=== PATIENT | male | born 1965 | race Caucasian/White ===

== ENCOUNTER 2017-06-18 18:51 | Emergency (ER) | payer BC ==
[2017-06-18 19:06] VITALS: BP 117/79
--- NOTE | 2017-06-18 19:28 | EDM.PDOC ---
ED HPI GENERAL MEDICAL PROBLEM - General Chief Complaint: Lower Extremity Injury/Pain Stated Complaint: HURT LEFT KNEE Time Seen by Provider: 06/18/17 19:15 Source of Information: Reports: Patient History Limitations: Reports: No Limitations - History of Present Illness INITIAL COMMENTS - FREE TEXT/NARRATIVE: 51-year-old male was playing football when he landed and felt his knee temporarily "go out of place". When he got up it felt like it popped back into place but now when he bears weight he feels and instability and pain laterally. He is able to bear some weight, but he has no effusion or deformity. He just wants it checked. Onset: Sudden Duration: Hour(s): (within the last hour) Location: Reports: Lower Extremity, Left Worsens with: Reports: Other (Weightbearing) Associated Symptoms: Reports: No Other Symptoms left knee Pain Score (Numeric/FACES): 5 - Related Data Allergies Allergy/AdvReac Type Severity Reaction Status Date / Time No Known Allergies Allergy Verified 12/18/15 07:38 Home Meds: Home Meds Primidone 1 tab PO BEDTIME 06/18/17 [History] Past Medical History HEENT History: Reports: Impaired Vision Neurological History: Reports: Other (See Below) Other Neuro History: essential tremor - Infectious Disease History Infectious Disease History: Reports: Chicken Pox - Past Surgical History HEENT Surgical History: Reports: None Social & Family History - Tobacco Use Smoking Status *Q: Never Smoker Second Hand Smoke Exposure: No - Caffeine Use Caffeine Use: Reports: Coffee - Alcohol Use Days Per Week of Alcohol Use: 0 - Recreational Drug Use Recreational Drug Use: No Review of Systems - Review of Systems Review Of Systems: See Below Respiratory: Reports: No Symptoms Cardiovascular: Reports: No Symptoms GI/Abdominal: Reports: No Symptoms Skin: Reports: No Symptoms. Denies: Bruising, Erythema Psychiatric: Reports: No Symptoms ED EXAM, GENERAL - Physical Exam Exam: See Below Exam Limited By: No Limitations General Appearance: Alert, No Apparent Distress Respiratory/Chest: No Respiratory Distress Extremities: Other (Exam is otherwise limited to the knees. They are symmetric in gross appearance. He has no significant palpation tenderness surrounding the injured knee, no medial or lateral ligament laxity. Patella is tracking properly.) Course - Vital Signs Last Recorded V/S: Last Vital Signs Temp 95.6 F 06/18/17 19:14 Pulse 91 06/18/17 19:14 Resp 16 06/18/17 19:14 BP 117/79 06/18/17 19:14 Pulse Ox 97 06/18/17 19:14 - Re-Assessments/Exams Free Text/Narrative Re-Assessment/Exam: 06/18/17 19:26 Discussed an x-ray but this is likely soft tissue injury and the patient declined an x-ray unless it was likely to be abnormal or informative. A four- inch Ortiz wrap was applied to the knee, he has crutches at home and he is going to buy a neoprene sleeve with patella stability. If he doesn't improve satisfactorily over the next several days he will recheck with orthopedics. Departure - Departure Time of Disposition: 19:42 Disposition: Home, Self-Care 01 Condition: Good Clinical Impression: Sprain of left knee Qualifiers: Encounter type: initial encounter Involved ligament of knee: unspecified ligament Qualified Code(s): S83.92XA - Sprain of unspecified site of left knee, initial encounter - Discharge Information Instructions: Knee Sprain, Adult, [id number] Referrals: PCP,None [Primary Care Provider] - Forms: ED Department Discharge Care Plan Goals: Wrap knee or use neoprene sleeve for support and increase activity as tolerated. Consider using crutches for the next several days until improved. Recheck in 4-6 days if not improving satisfactorily, or return anytime sooner if worsening or concerns.
== END 2017-06-18 19:42 | disposition home or self-care (01) ==
LOC: JP.ED 18:51
DX: S83.92XA Sprain of unspecified site of left knee, initial encounter (principal); X50.9XXA Other and unspecified overexertion or strenuous movements or postures, initial encounter; Y93.61 Activity, american tackle football
CPT/HCPCS: 99283

== ENCOUNTER 2024-03-13 02:09 | Emergency (ER) | payer BC ==
[2024-03-13 02:25] VITALS: BP 124/90; PULSE 74
[2024-03-13 02:52] LABS: BASOPHILS ABSOLUTE AUTO 0.05 K/uL (0.00-0.10); BASOPHILS PERCENT AUTO 0.4 % (0.1-1.3); EOSINOPHILS ABSOLUTE AUTO 0.11 K/uL (0.00-0.40); EOSINOPHILS PERCENT AUTO 0.9 % (0.0-5.4); HEMATOCRIT 43.9 % (38.4-49.7); IMMATURE GRAN ABSOLUTE AUTO 0.04 K/uL (0.00-0.23); IMMATURE GRAN PERCENT AUTO 0.3 % (0.0-0.7); LYMPHOCYTES ABSOLUTE AUTO 2.41 K/uL (0.8-3.3); LYMPHOCYTES PERCENT AUTO 19.6 % (11.4-47.7); MEAN CORPUSCULAR HEMOGLOBIN 30.1 pg (31.6-35.5); MEAN CORPUSCULAR HGB CONC 34.2 g/dL (31.6-35.5); MEAN CORPUSCULAR VOLUME 88.2 fL (81.4-99.0); MONOCYTES ABSOLUTE AUTO 1.19 K/uL (0.20-0.90); MONOCYTES PERCENT AUTO 9.7 % (3.3-12.6); NEUTROPHILS ABSOLUTE AUTO 8.47 K/uL (1.0-7.6); NEUTROPHILS PERCENT AUTO 69.1 % (40.0-78.1); PLATELET COUNT,PLT 271 K/uL (130-375); RED BLOOD CELL COUNT 4.98 M/uL (4.14-5.76); WHITE BLOOD CELL COUNT,WBC 12.3 K/uL (3.2-11.0)
[2024-03-13 03:10] LABS: A/G RATIO 1.1 (1.2-2.2); ALANINE AMINOTRANSFERASE,ALT 20 U/L (12-78); ALBUMIN 3.8 g/dL (3.4-5.0); ALKALINE PHOSPHATASE 80 U/L (46-116); ANION GAP 9.6 mmol/L (5.0-14.0); ASPARTATE AMNIOTRANSFERASE,AST 16 U/L (15-37); BILIRUBIN TOTAL 0.5 mg/dL (0.2-1.0); BLOOD UREA NITROGEN,BUN 19 mg/dL (7-18); CALCIUM 8.6 mg/dL (8.5-10.1); CARBON DIOXIDE,CO2 27 mmol/L (21-32); CHLORIDE,CL 104 mmol/L (100-108); CREATININE 1.3 mg/dL (0.8-1.3); EST CRCL DRUG DOSING (CG) 63.95 mL/min; ESTIMATED GFR 64 mL/min (>60); GLUCOSE RANDOM 110 mg/dL (74-106); PROTEIN TOTAL,TP 7.2 g/dL (6.4-8.2); SODIUM,NA 141 mmol/L (140-148)
[2024-03-13 03:11] LABS: TROPONIN I HIGH SENSITIVITY < 4.0 pg/mL (<=60.3)
== END 2024-03-13 03:54 | disposition home or self-care (01) ==
LOC: JP.ED 02:09
DX: R07.89 Other chest pain (principal); Z79.899 Other long term (current) drug therapy
CPT/HCPCS: 36415; 71046; 71046-26; 80053; 84484; 85025; 93005; 99285